=== PATIENT | male | born 1955 | race Caucasian/White ===

== ENCOUNTER 2016-06-13 08:44 | Outpatient (CLI) | payer MEDICARE, MEDICAID ==
[2016-06-13 10:00] LABS: ALT (SGPT) 44 U/L (0-55); AST (SGOT) 63 U/L (5-34); Albumin 4.2 g/dL (3.4-4.8); Alkaline Phosphatase 73 U/L (40-150); Anion Gap 18 mmol/L (10-20); BUN (Urea Nitrogen) 4 mg/dL (8.4-25.7); Bilirubin, Total 0.7 mg/dL (0.2-1.2); Calc. Creatinine Clearance 0 mL/min (70-130); Calcium 9.3 mg/dL (7.8-10.44); Carbon Dioxide 20 mmol/L (23-31); Chloride 107 mmol/L (98-107); Estimated GFR-MDRD Greater than 90; Globulin 3.3 g/dL (2.4-3.5); Glucose 95 mg/dL (80-115); Potassium 4.5 mmol/L (3.5-5.1); Protein, Total 7.5 g/dL (5.8-8.1); Sodium 140 mmol/L (136-145)
[2016-06-13 10:01] LABS: Hemoglobin A1c 4.6 % (4.0-6.0)
== END 2016-06-13 08:45 | disposition home or self-care (01) ==
LOC: MADLABBHPM 08:44
PROVIDERS: ATTEND Family Medicine
DX: R73.01 Impaired fasting glucose (principal)
CPT/HCPCS: 36415; 80053; 83036

== ENCOUNTER 2016-10-04 08:35 | Outpatient (CLI) | payer MEDICARE, MEDICAID ==
[2016-10-04 09:24] LABS: #Basophils 0.1 thou/uL (0.0-0.2); #Eosinphils 0.5 thou/uL (0.0-0.7); #Lymphocytes 1.3 thou/uL (1.20-3.40); #Monocytes 0.6 thou/uL (0.11-0.59); #Neutrophils 4.6 thou/uL (1.40-6.50); %Basophils 1.7 % (0.0-1.0); %Eosinophils 7.3 % (0.0-10.0); %Lymphocytes 18.7 % (21.0-51.0); %Monocytes 8.1 % (0.0-10.0); %Neutrophils 64.1 % (42.0-75.0); Hemoglobin 14.6 g/dL (14.0-18.0); Mean Corpuscular HGB CONC 30.9 g/dL (32.0-36.0); Mean Corpuscular Hemoglobin 28.6 pg (27.0-31.0); Mean Corpuscular Volume 92.5 fl (80.0-94.0); Mean Platelet Volume 6.8 fL (7.4-10.4); Platelet Count 187 thou/uL (130-400); RBC Distribution Width 14.5 % (11.5-14.5); Red Blood Cell (RBC) Count 5.12 mill/uL (4.70-6.10); White Blood Cell (WBC) Count 7.1 thou/uL (4.8-10.8)
[2016-10-04 09:34] LABS: ALT (SGPT) 36 U/L (8-55); AST (SGOT) 46 U/L (5-34); Albumin 3.8 g/dL (3.4-4.8); Alkaline Phosphatase 86 U/L (40-150); Anion Gap 16 mmol/L (10-20); BUN (Urea Nitrogen) 6 mg/dL (8.4-25.7); Bilirubin, Total 0.9 mg/dL (0.2-1.2); Calc. Creatinine Clearance 0 mL/min (70-130); Calcium 9.2 mg/dL (7.8-10.44); Carbon Dioxide 23 mmol/L (23-31); Cardiac Risk 1.8 (Less than 4.5); Chloride 104 mmol/L (98-107); Cholesterol 150 mg/dl (< 200 Desired); Estimated GFR-MDRD Greater than 90; Globulin 3.8 g/dL (2.4-3.5); Glucose 113 mg/dL (80-115); HDL Cholesterol 85 mg/dL (>60 Neg Risk); LDL Cholesterol, Calculated 55 mg/dL; Potassium 3.9 mmol/L (3.5-5.1); Protein, Total 7.6 g/dL (5.8-8.1); Sodium 139 mmol/L (136-145); Triglycerides 50 mg/dL (Less than 150)
[2016-10-04 10:42] LABS: Free T4 (Free Thyroxine) 0.75 ng/dL (0.70-1.48); Thyroid Stimulating Hormone 3.4436 uIU/mL (0.35-4.94)
== END 2016-10-04 08:36 | disposition home or self-care (01) ==
LOC: MADLABBHPM 08:35
PROVIDERS: ATTEND Family Medicine
DX: R74.8 Abnormal levels of other serum enzymes (principal); F41.9 Anxiety disorder, unspecified; I10 Essential (primary) hypertension
CPT/HCPCS: 36415; 80053; 80061; 84439; 84443; 85025

== ENCOUNTER 2017-08-12 09:37 | Outpatient (CLI) | payer MEDICARE, MEDICAID ==
[2017-08-12 10:32] LABS: #Basophils 0.1 thou/uL (0.0-0.2); #Eosinphils 0.1 thou/uL (0.0-0.7); #Monocytes 0.4 thou/uL (0.11-0.59); #Neutrophils 2.6 thou/uL (1.40-6.50); %Basophils 1.6 % (0.0-1.0); %Eosinophils 1.5 % (0.0-10.0); %Lymphocytes 24.3 % (21.0-51.0); %Monocytes 9.3 % (0.0-10.0); %Neutrophils 63.3 % (42.0-75.0); Hemoglobin 12.7 g/dL (14.0-18.0); Mean Corpuscular HGB CONC 31.8 g/dL (32.0-36.0); Mean Corpuscular Hemoglobin 28.5 pg (27.0-31.0); Mean Corpuscular Volume 89.8 fl (80.0-94.0); Mean Platelet Volume 6.4 fL (7.4-10.4); Platelet Count 230 thou/uL (130-400); RBC Distribution Width 14.9 % (11.5-14.5); Red Blood Cell (RBC) Count 4.46 mill/uL (4.70-6.10); White Blood Cell (WBC) Count 4.1 thou/uL (4.8-10.8)
[2017-08-12 10:46] LABS: ALT (SGPT) 36 U/L (8-55); AST (SGOT) 41 U/L (5-34); Albumin 4.1 g/dL (3.4-4.8); Alkaline Phosphatase 71 U/L (40-150); Anion Gap 20 mmol/L (10-20); BUN (Urea Nitrogen) 5 mg/dL (8.4-25.7); Bilirubin, Total 0.6 mg/dL (0.2-1.2); CK (CPK) 649 U/L (30-200); Calc. Creatinine Clearance 0 mL/min (70-130); Calcium 9.1 mg/dL (7.8-10.44); Carbon Dioxide 18 mmol/L (23-31); Chloride 101 mmol/L (98-107); Estimated GFR-MDRD Greater than 90; Globulin 3.5 g/dL (2.4-3.5); Glucose 147 mg/dL (80-115); Potassium 4.2 mmol/L (3.5-5.1); Protein, Total 7.6 g/dL (5.8-8.1); Sodium 135 mmol/L (136-145)
--- NOTE | 2017-08-12 10:46 | RAD ---
TWO VIEWS OF THE CHEST: DATE: 08/12/17. COMPARISON: 10/07/16. HISTORY: Persistent cough. FINDINGS: There is mild increased linear interstitial density with pulmonary hyperinflation. There is no pneum othorax, pleural fluid, focal consolidation, or alveolar edema. Heart and mediastinal contours are s table. Lateral imaging demonstrates pulmonary hyperinflation. IMPRESSION: Pulmonary hyperinflation and mild increased interstitial density. No lobar consolidation or alveolar edema. POS: [facility]
== END 2017-08-12 09:38 | disposition home or self-care (01) ==
LOC: MADLABBHPM 09:37
PROVIDERS: ATTEND Family Medicine
DX: R91.8 Other nonspecific abnormal finding of lung field (principal); T67.5XXA Heat exhaustion, unspecified, initial encounter
CPT/HCPCS: 36415; 71046; 80053; 82550; 85025

== ENCOUNTER 2017-08-18 10:58 | Outpatient (CLI) | payer MEDICARE, MEDICAID ==
[2017-08-18 11:24] LABS: #Basophils 0.1 thou/uL (0.0-0.2); #Lymphocytes 1.1 thou/uL (1.20-3.40); #Monocytes 0.8 thou/uL (0.11-0.59); %Basophils 0.7 % (0.0-1.0); %Eosinophils 0.4 % (0.0-10.0); %Lymphocytes 9.8 % (21.0-51.0); %Monocytes 7.2 % (0.0-10.0); Hemoglobin 14.4 g/dL (14.0-18.0); Mean Corpuscular HGB CONC 31.8 g/dL (32.0-36.0); Mean Corpuscular Hemoglobin 27.9 pg (27.0-31.0); Mean Corpuscular Volume 87.7 fl (80.0-94.0); Mean Platelet Volume 5.7 fL (7.4-10.4); Platelet Count 255 thou/uL (130-400); RBC Distribution Width 14.7 % (11.5-14.5); Red Blood Cell (RBC) Count 5.17 mill/uL (4.70-6.10)
[2017-08-18 11:40] LABS: Anion Gap 19 mmol/L (10-20); BUN (Urea Nitrogen) 8 mg/dL (8.4-25.7); CK (CPK) 440 U/L (30-200); Calc. Creatinine Clearance 0 mL/min (70-130); Calcium 9.3 mg/dL (7.8-10.44); Carbon Dioxide 20 mmol/L (23-31); Chloride 100 mmol/L (98-107); Estimated GFR-MDRD Greater than 90; Glucose 117 mg/dL (80-115); Potassium 4.6 mmol/L (3.5-5.1); Sodium 134 mmol/L (136-145)
== END 2017-08-18 10:59 | disposition home or self-care (01) ==
LOC: MADLABBHPM 10:58
PROVIDERS: ATTEND Family Medicine
DX: T67.5XXA Heat exhaustion, unspecified, initial encounter (principal); D64.9 Anemia, unspecified
CPT/HCPCS: 36415; 80048; 82550; 85025

== ENCOUNTER 2017-08-21 12:35 | Outpatient (CLI) | payer MEDICARE, MEDICAID ==
[2017-08-21 13:34] LABS: Anion Gap 16 mmol/L (10-20); BUN (Urea Nitrogen) 10 mg/dL (8.4-25.7); CK (CPK) 530 U/L (30-200); Calc. Creatinine Clearance 0 mL/min (70-130); Calcium 9.4 mg/dL (7.8-10.44); Carbon Dioxide 24 mmol/L (23-31); Chloride 100 mmol/L (98-107); Estimated GFR-MDRD Greater than 90; Glucose 97 mg/dL (80-115); Potassium 3.9 mmol/L (3.5-5.1); Sodium 136 mmol/L (136-145)
== END 2017-08-21 12:36 ==
LOC: MADLABBHPM 12:35
PROVIDERS: ATTEND Family Medicine
DX: T67.5XXA Heat exhaustion, unspecified, initial encounter (principal)
CPT/HCPCS: 36415; 80048; 82550

== ENCOUNTER 2017-08-25 10:28 | Outpatient (CLI) | payer MEDICARE, MEDICAID | END 2017-08-25 10:29 | disposition home or self-care (01) | LOC: MADLABBHPM 10:28 | PROVIDERS: ATTEND Family Medicine | DX: R74.8 Abnormal levels of other serum enzymes (principal) | CPT/HCPCS: 36415; 82550 ==

== ENCOUNTER 2024-07-24 00:50 | Inpatient (IN) | payer MEDICARE, MEDICAID ==
[2024-07-24 01:43] VITALS: BMI 19.8
[2024-07-24] MEDS ORDERED: Albuterol 200 PUFF (6.7GM INHALER) INH PRN (03:00)
[2024-07-24] MEDS: hydrALAZINE 25 MG TAB PO SCH (08:47)
[2024-07-24] MEDS: Thiamine 100 MG TAB PO SCH (08:48)
[2024-07-24] MEDS: cloNIDine 0.1 MG TAB PO SCH (08:48)
[2024-07-24] MEDS: Losartan 25 MG TAB PO SCH (08:48)
[2024-07-24] MEDS: Folic Acid 1 MG TAB PO SCH (08:49)
[2024-07-24] MEDS: Sodium Chloride 1 GM TAB PO SCH (08:49)
[2024-07-24] MEDS: Multivit, Therapeutic 1 TAB PO SCH (08:50)
[2024-07-24] MEDS: Lidocaine 4% Patch TD SCH (08:51)
[2024-07-24] MEDS: Enoxaparin 40 MG (0.4 mL) SYRINGE SC SCH (09:06)
[2024-07-24] MEDS: Famotidine 20 MG TAB PO SCH (20:04)
[2024-07-24] MEDS: Transdermal Patch Removal TOP SCH (20:05)
[2024-07-25] MEDS: Levothyroxine Sodium 25 MCG TAB PO SCH (06:04)
[2024-07-25 22:26] VITALS: TEMP 97.6
[2024-07-26 05:37] LABS: Anion Gap 12 mmol/L (10-20); BUN (Urea Nitrogen) 17 mg/dL (8.4-25.7); Calc. Creatinine Clearance 90 mL/min (70-130); Calcium 8.8 mg/dL (7.8-10.44); Carbon Dioxide 18 mmol/L (23-31); Chloride 103 mmol/L (98-107); Estimated GFR 99; Glucose 94 mg/dL (80-115); Potassium 4.1 mmol/L (3.5-5.1); Sodium 129 mmol/L (136-145)
[2024-07-26 13:17] VITALS: BMI 19.8
[2024-07-26 14:56] VITALS: BP 151/96
[2024-07-27] MEDS ORDERED: Losartan 50 MG TAB PO SCH (09:00)
== END 2024-07-26 19:13 | disposition left against medical advice (07) | DRG 945 ==
LOC: MADMS 00:52
PROVIDERS: ADMIT Family Medicine; ATTEND Family Medicine
PROC: F08Z0ZZ Bathing/Showering Techniques Treatment (ICD-10-PCS; principal; 2024-07-24)
PROC: F07Z5ZZ Bed Mobility Treatment (ICD-10-PCS; principal; 2024-07-24)
DX: R53.81 Other malaise (principal); E87.1 Hypo-osmolality and hyponatremia; I10 Essential (primary) hypertension; J44.9 Chronic obstructive pulmonary disease, unspecified; E78.5 Hyperlipidemia, unspecified; F32.A Depression, unspecified; F41.9 Anxiety disorder, unspecified; F10.10 Alcohol abuse, uncomplicated; R26.89 Other abnormalities of gait and mobility; E03.9 Hypothyroidism, unspecified; F12.10 Cannabis abuse, uncomplicated; S22.49XD Multiple fractures of ribs, unspecified side, subsequent encounter for fracture with routine healing; V89.2XXA Person injured in unspecified motor-vehicle accident, traffic, initial encounter; Z98.890 Other specified postprocedural states; Z79.899 Other long term (current) drug therapy; Z79.890 Hormone replacement therapy
CPT/HCPCS: 36415; 80048; J1650